=== PATIENT | female | born 1985 | race Caucasian/White ===

== ENCOUNTER 2017-05-24 17:50 | Emergency (ER) | payer OTHER ==
[~2017-05-24] VITALS: Ht 165.1 cm; Wt 81.6 kg
--- NOTE | 2017-05-24 17:59 | NUR ---
PATIENT IS NOT IN ED WAITING ROOM, UNABLE TO TRIAGE AT THIS TIME. WILL TRY AGAIN LATER.
--- NOTE | 2017-05-24 18:16 | NUR ---
PATIENT IS NOT IN ED WAITING ROOM, UNABLE TO TRIAGE AT THIS TIME. WILL TRY AGAIN LATER.
[2017-05-24 18:44] VITALS: BP 161/110
== END 2017-05-24 20:53 ==
LOC: ER 17:55 → EDBD 17:55 → ER 20:53
DX: Z53.21 Procedure and treatment not carried out due to patient leaving prior to being seen by health care provider (principal)
CPT/HCPCS: A4606; Z7610